=== PATIENT | female | born 1950 | race African-American/Black ===

== ENCOUNTER → 2018-03-10 | Outpatient (CLI) | payer MEDICARE ==
[~2018-03-10] MED LIST: DIAZEPAM 10 MG TABLET. ONE; IV NORMAL SALINE 1000ML BAG 1,000 ML ONE; REGADENOSON 0.4 MG/5 ML DISP.SYRIN. IV ONE
--- NOTE | 2018-03-13 00:59 | PCVCIMAG ---
APPROVED REPORT Imaging Protocol: Rest Tc-99m/Stress Tc-99m 1 day Study performed: 03/10/2018 08:41:58 Indication: Abn EKG, Pre OP, CAD Patient Location: Out-Patient Stress Nurse: Yasmeen Vizcarra RN, Sierra Downey RN PR Tech:Brian HartmanABIELTCB Ht: 5 ft 6 in Wt: 190 lbs BSA: 1.96 m2 HR: 82 bpm BP: 196/88 mmHg BMI: 30.6 Rhythm: Sinus Rhythm, RBBB Medical History Medical History: Age, Hyperlipidemia, HTN, CAD, DM Medications: Atorvastatin, Coreg, Lisinopril, Nitro Allergies: Sulfa Pretest Chest Pain Characteristics: No chest pain Exercise History: Sedentary Resting Data Rest SPECT myocardial perfusion imaging was performed in supine position 45 minutes following the intravenous injection of 10.2 mCi of Tc-99m Sestamibi. Time of rest injection: 834 Date: 03/10/2018 Administration Route: IV Administration Site: Right Hand Pharmacologic Stress Pharmacologic stress test was performed by injecting Regadenoson 0.4 mg IV push over 10-15 seconds immediately followed by the intravenous injection of 33.3 mCi of Tc-99m Sestamibi. Time of stress injection: 944 Date: 03/10/2018 Administration Route: IV Administration Site: Right Hand Gated Stress SPECT was performed 45 minutes after stress injection. The images were gated to evaluate regional wall motion and calculate left ventricular ejection fraction. Comments Prior Study 01/2017 High Risk for Ischemia Stress Test Details Stress Test: Pharmacologic stress testing performed using 0.4 mg of regadenoson per 5 mL given IV over 10 seconds. Reason for pharmacologic stress test: exercise intolerance, Dialysis. HRMax Heart Rate (APMHR): 152 bpm Resting HR: 82 bpmTarget HR (85% APMHR): 129 bpm Max HR Achieved: 93 bpm % of APMHR: 61 Recovery HR: 93 bpm BP Resting BP: 196/88 mmHg Max BP: 178/84 mmHg Recovery BP: 180/82 mmHg ECG Resting ECG: Sinus Rhythm, RBBB Stress ECG: Sinus Rhythm, RBBB Arrhythmia: None Recovery ECG: Sinus Rhythm, RBBB Clinical Reason for Termination: Completed protocol Stress Symptoms: Dyspnea, Lightheaded Symptoms resolved with caffeine. Stress ECG Conclusion 1. Adequate response to IV lexiscan 2. Inadequate heart rate for ECG diagnosis Study Data Post stress, the left ventricular ejection was 67%.. SSS: 1 SRS: 0 SDS: 1 TID = 0.93. Perfusion There is a medium area of moderately reduced uptake in the mid and apical segment of the inferior wall which is seen on the stress images and improves on the resting images. This area thickens and moves normally and is most consistent with ischemia. Nuclear Conclusion ECG Findings: non-diagnostic Clinical Findings: negative for ischemia Nuclear Findings: positive for ischemia Exercise Capacity: not assessed Left Ventricular Function: normal 1. Intermediate to high risk study Compared to the prior study dated 01/2017, . Interpreted by: Daniel Jhaveri MD Electronically Approved: 03/13/2018 00:58:15 <Conclusion> 1. Adequate response to IV lexiscan 2. Inadequate heart rate for ECG diagnosis
== END | disposition home or self-care (01) ==
LOC: PCVCIMAG 09:25
PROVIDERS: ATTEND Internal Medicine
DX: Z01.818 Encounter for other preprocedural examination (principal); I25.10 Atherosclerotic heart disease of native coronary artery without angina pectoris; R94.31 Abnormal electrocardiogram [ECG] [EKG]; E78.5 Hyperlipidemia, unspecified; I10 Essential (primary) hypertension; E11.9 Type 2 diabetes mellitus without complications; R42 Dizziness and giddiness
CPT/HCPCS: 78452; 93017; A9500; J2785; J7030